=== PATIENT | female | born 1950 | race Caucasian/White ===

== ENCOUNTER 2019-07-15 12:11 | Inpatient (IN) | payer OTHER ==
[~2019-07-15] VITALS: Ht 170.2 cm; Wt 72.6 kg
== END 2019-07-28 11:24 | disposition expired | DRG 207 ==
LOC: ER 12:11 → EDBD 13:28 → ER 13:28 → ICU 22:51 → MEDJ 22:51 → ICU 07-18 12:03
PROVIDERS: ADMIT Internal Medicine
PROC: 0BH17EZ Insertion of Endotracheal Airway into Trachea, Via Natural or Artificial Opening (ICD-10-PCS; principal; 2019-07-15)
PROC: 5A1955Z Respiratory Ventilation, Greater than 96 Consecutive Hours (ICD-10-PCS; 2019-07-15)
PROC: 3E0F7GC Introduction of Other Therapeutic Substance into Respiratory Tract, Via Natural or Artificial Opening (ICD-10-PCS; 2019-07-15)
PROC: 8E0ZXY6 Isolation (ICD-10-PCS; 2019-07-15)
PROC: 4A033R1 Measurement of Arterial Saturation, Peripheral, Percutaneous Approach (ICD-10-PCS; 2019-07-15)
PROC: 02HV33Z Insertion of Infusion Device into Superior Vena Cava, Percutaneous Approach (ICD-10-PCS; 2019-07-22)
PROC: 0DH67UZ Insertion of Feeding Device into Stomach, Via Natural or Artificial Opening (ICD-10-PCS; 2019-07-25)
PROC: 3E0336Z Introduction of Nutritional Substance into Peripheral Vein, Percutaneous Approach (ICD-10-PCS; 2019-07-26)
DX: J96.01 Acute respiratory failure with hypoxia (principal); J12.89 Other viral pneumonia; B37.1 Pulmonary candidiasis; B97.29 Other coronavirus as the cause of diseases classified elsewhere; Z90.5 Acquired absence of kidney